=== PATIENT | male | born 1990 | race Caucasian/White ===

== ENCOUNTER → 2017-11-23 | Outpatient (CLI) | payer OTHER | END | disposition home or self-care (01) | LOC: KCIC MRI 09:19 | DX: S80.02XA Contusion of left knee, initial encounter (principal); S83.412A Sprain of medial collateral ligament of left knee, initial encounter; A18.0 Tuberculosis of bones and joints; M25.462 Effusion, left knee; R60.0 Localized edema; X58.XXXA Exposure to other specified factors, initial encounter; Y93.89 Activity, other specified; Y92.89 Other specified places as the place of occurrence of the external cause; Y99.8 Other external cause status | CPT/HCPCS: 73721 ==